=== PATIENT | female | born 1985 | race Caucasian/White ===

== ENCOUNTER 2016-08-16 06:24 | Day surgery (SDC) | payer OTHER ==
[~2016-08-16 06:24] MED LIST: Buffered Lidocaine 1% SYRIN* 3 ML/SYR SYRINGE INTRADERM ONE; Dexamethasone IV* 4 MG/ML 1 ML (4 MG) IV SLOW PU ONE; Dexamethasone IV* 4 MG/ML 1 ML (4 MG) ONE; Famotidine IV* 10 MG/ML 2 ML (20 mg) IV ONE; Famotidine IV* 10 MG/ML 2 ML (20 mg) ONE; Levalbuterol 0.63MG/3ML NEB INH ONE; Scopolamine 1.5 mg* PATCH ONE; Scopolamine 1.5 mg* PATCH TRANSDERM ONE
[2016-08-16 07:04] LABS: Hematocrit 39 % (35-47); Hemoglobin 13.1 g/dl (12.0-16.0); Mean Corpuscular HGB Conc 34 g/dl (31-36); Mean Corpuscular Hemoglobin 29 pg (27-31); Mean Corpuscular Volume 86 fL (80-97); Mean Platelet Volume 8 um3 (7.4-10.4); Red Blood Count 4.47 10^6/ul (4.0-5.4); Red Cell Distribution Width 14 % (10.5-15); White Blood Count 7.7 10^3/ul (3.5-10.8)
[2016-08-16] MEDS ORDERED: Ketorolac INJ* 30 MG/ML 1 ML VIAL ONE (07:13)
[2016-08-16] MEDS ORDERED: Propofol* 10 MG/ML 20 ML BTL IV PUSH ONE (07:13)
[2016-08-16] MEDS ORDERED: Lidocaine 2% PF * 5 ML VIAL ONE (07:13)
[2016-08-16] MEDS ORDERED: Ondansetron INJ* 2 MG/ML VIAL ONE (07:13)
[2016-08-16] MEDS ORDERED: Succinylcholine* 20 MG/ML 10 ML VIAL ONE (07:13)
[2016-08-16] MEDS ORDERED: fentaNYL* 50 MCG/ML 2 ML VIAL (100 MCG VIAL) ONE ×3 (07:14→08:28)
[2016-08-16] MEDS ORDERED: HYDROmorphone* 1 MG/ML 1 ML SYR ONE ×3 (07:14→09:01)
[2016-08-16] MEDS ORDERED: Dexmedetomidine* 200 MCG/2 ML 2 ML VIAL ONE (07:18)
[2016-08-16] MEDS ORDERED: Bupivacaine 0.5% W/EPI SDV* 30 ML VIAL ONE (07:19)
[2016-08-16] MEDS ORDERED: PROCHLORPERAZINE INJ 5 MG/ML 2 ML VIAL IV PRN (07:33)
[2016-08-16] MEDS ORDERED: DiMENhydriNATE IV* 50 MG/ML VIAL IV PUSH PRN (07:33)
[2016-08-16] MEDS ORDERED: Ondansetron INJ* 2 MG/ML VIAL IV PRN (07:33)
[2016-08-16] MEDS ORDERED: HYDROmorphone* 1 MG/ML 1 ML SYR IV PRN (07:33)
[2016-08-16] MEDS ORDERED: Midazolam* 1 MG/ML 2 ML VIAL (2 MG) ONE (07:42)
[2016-08-16] MEDS ORDERED: oxyCODONE/Acetamin 5/325 MG* TAB PO PRN (08:53)
[2016-08-16] MEDS ORDERED: fentaNYL* 50 MCG/ML 5 ML VIAL (250 MCG VIAL) ONE (09:01)
[2016-08-16] MEDS ORDERED: oxyCODONE/Acetamin 5/325 MG* TAB ONE (09:01)
[2016-08-16] MEDS: fentaNYL* 50 MCG/ML 2 ML VIAL (100 MCG VIAL) IV PRN ×5 (09:11→09:47)
[2016-08-16 10:02] VITALS: BP 119/78
[2016-08-19] MEDS ORDERED: Scopolomine PATCH Remove* 1 NOTE MISC PATCH OFF ONE (06:00)
--- NOTE | 2016-08-24 07:51 | OP ---
DATE OF OPERATION: 08/16/16 [facility] DATE OF : 83 SURGEON: Freddie Fofana MD PHOTOGRAPHIC ARTIST: TERENCE Diamond ANESTHESIOLOGIST: Abraham Wellington MD ANESTHESIA: General anesthetic, endotracheal intubation. PRE-OP DIAGNOSIS: Multiparity, the patient desires permanent surgical sterilization. POST-OP DIAGNOSIS: Multiparity, the patient desires permanent surgical sterilization. OPERATIVE PROCEDURE: Bilateral laparoscopic tubal ligation . ESTIMATED BLOOD LOSS: None. FLUIDS: She received 1 L of IV crystalloid fluid. URINE OUTPUT: 600 cc of clear urine. FINDINGS: Exam under anesthesia revealed normal external genitalia, normal cervix, and normal vaginal mucosa. The uterus was noted to be in the retroverted position and laparoscopically, the uterus, bowel, bladder, and adnexa were all within normal limits. There were no complications during this procedure. DESCRIPTION OF PROCEDURE: The patient was taken to the operating room where she was identified. She was placed on the operating table, where a general anesthetic with endotracheal intubation was obtained without difficulty. She was then placed in the dorsal lithotomy position, prepped and draped in the normal sterile fashion. Attention was turned on to the patient's peritoneum, where the bladder was catheterized with Rocha catheter and drained off clear urine. A weighted speculum was then inserted into the patient's vagina. The cervix was grasped with a single- tooth tenaculum and a [place] uterine manipulator was inserted through the cervix. The balloon and the manipulator was then insufflated with 4 cc of normal saline. The single-tooth tenaculum and speculum was then removed. Attention was then brought on to the patient's abdomen, where a 1-cm infraumbilical skin incision was made with a knife and carried through to the underlying layer of fascia. The fascia was then grasped with the Priti clamps, brought up through the incision, and incised with the knife. The fascial incision was then extended about 1 cm with a Yecenia clamp and entry into the peritoneum was confirmed using fascia retractors. At this point, the Priti clamps were then replaced with 0 Polysorb sutures and through this incision, a 10-mm blunt trocar was introduced. The balloon and trocars were insufflated with air 20 cc and attached to 0 Polysorb sutures. The patient 's abdomen was then insufflated with CO2 gas and a look with the laparoscope revealed findings as noted above. At this point, a second trocar was introduced 4 cm above the symphysis pubis under direct visualization. The second trocar, a Filshie clip applicator was introduced. The fallopian tubes were visualized bilaterally and the Filshie clips were applied on the fallopian tubes bilaterally with good blanching at the application site and complete obstruction of the fallopian tubes bilaterally. At this point, all the instruments were removed from the patient's abdomen. The gas from the abdomen was also removed. The umbilical incision and the fascia was closed using 0 Polysorb suture in a running fashion in the umbilical and suprapubic incisions. The skin was closed using 4-0 Monocryl and a subcuticular stitch. All the instruments were also removed from the patient's vagina. Sponge, lap, and needle counts were correct x2. She was then transferred to the recovery room area in stable condition. [id number] #: [id number]
== END 2016-08-16 10:32 | disposition home or self-care (01) ==
LOC: OR 06:24
PROVIDERS: ATTEND Obstetrics & Gynecology
DX: Z30.2 Encounter for sterilization (principal); Z87.891 Personal history of nicotine dependence
CPT/HCPCS: 36415; 85025; A9270-GY; J0330; J1100; J1170; J1885; J2250; J2405; J2704; J3010

== ENCOUNTER 2017-08-14 13:25 | Emergency (ER) | payer OTHER ==
--- NOTE | 2017-08-14 14:40 | RAD ---
INDICATION: Left ankle injury. TECHNIQUE: 3 views of the left ankle were obtained. FINDINGS: Soft tissue swelling is noted along the anterolateral aspect of the ankle. No fracture is seen. Joint spaces appear maintained. IMPRESSION: SOFT TISSUE SWELLING, NO FRACTURE IS SEEN.
[2017-08-14 15:33] VITALS: BP 131/85
--- NOTE | 2017-08-14 16:00 | ED ---
Lower Extremity - HPI Summary HPI Summary: Patient is a 31-year-old female who presents emergency department for a left ankle injury that occurred today. Patient states she stepped off a sidewalk and twisted her left ankle. No other injuries were sustained. She is able to walk with pain. Denies numbness, tingling or weakness. Symptoms are mild in severity. No other injuries were sustained. Walking and moving ankle makes symptoms worse. Rest makes symptoms better. - History of Current Complaint Chief Complaint: EDExtremityLower Stated Complaint: LT ANKLE INJURY Time Seen by Provider: 08/14/17 14:29 Hx Obtained From: Patient Pain Intensity: 5 Pain Scale Used: 0-10 Numeric - Allergies/Home Medications Allergies/Adverse Reactions: Allergies Allergy/AdvReac Type Severity Reaction Status Date / Time Sulfa (Sulfonamide AdvReac Nausea And Verified 08/14/17 14:35 Antibiotics) Vomiting PMH/Surg Hx/FS Hx/Imm Hx Previously Healthy: Yes Endocrine/Hematology History: Reports: Hx Anemia - occas during History: Reports: Hx Kidney Infection, Hx Kidney Stones, Other Problems/ Disorders Sensory History: Denies: Hx Contacts or Glasses, Hx Hearing Aid Opthamlomology History: Denies: Hx Contacts or Glasses Neurological History: Reports: Hx Migraine - TREATS WITH TYLENOL, ALEVE, OR IBUPROFEN- - Surgical History Surgery Procedure, Year, and Place: x2 - 2007, 2013 - [facility] [place]. appendectomy - 1999, [facility] Hx Anesthesia Reactions: No - Immunization History Date of Tetanus Vaccine: within 10 years Date of Influenza Vaccine: fall 2012 Infectious Disease History: No Infectious Disease History: Denies: Traveled Outside the [place] in Last 30 Days - Social History Occupation: Employed Full-time Lives: With Family Alcohol Use: Occasionally Alcohol Amount: 2 per week Substance Use Type: Reports: None Smoking Status (MU): Former Smoker Amount Used/How Often: 1 PACK PER WEEK X 2 YEARS Have You Smoked in the Last Year: Yes Review of Systems Constitutional: Negative Positive: Other - left ankle pain and swelling Skin: Negative Negative: Weakness, Paresthesia, Numbness All Other Systems Reviewed And Are Negative: Yes Physical Exam Triage Information Reviewed: Yes Vital Signs On Initial Exam: Initial Vitals Temp Pulse Resp BP Pulse Ox 97.9 F 82 18 137/82 99 08/14/17 13:47 08/14/17 13:47 08/14/17 13:47 08/14/17 13:47 08/14/17 13:47 Vital Signs Reviewed: Yes Appearance: Positive: Well-Appearing - Patient lying in bed in no acute distress. Pleasant. Skin: Positive: Warm, Dry Head/Face: Positive: Normal Head/Face Inspection Musculoskeletal: Positive: Other - Mild soft tissue edema laterally and pain on the left lateral malleolus. Achilles tendon is intact. No pain to the foot or into the base of the fifth metatarsal. No proximal tib-fib or knee pain. Leg is neurovascularly intact. No breaks in the skin. Neurological: Positive: Normal, CN Intact II-III Psychiatric: Positive: Normal Procedures - Splinting Pre-Made Type: Amor wrap Pre-Proc Neuro Vasc Exam: normal Post-Proc Neuro Vasc Exam: normal Diagnostics - Vital Signs Vital Signs Temp Pulse Resp BP Pulse Ox 08/14/17 15:32 0 F 67 14 131/85 97 08/14/17 13:47 97.9 F 82 18 137/82 99 - Laboratory Lab Statement: Any lab studies that have been ordered have been reviewed, and results considered in the medical decision making process. Lower Extremity Course/Dx - Course Course Of Treatment: Patient presenting to the ear for a minor ankle injury. X- ray reviewed by myself and radiology is negative for fracture or dislocation. Initially ordered an air splint but patient was too large for splint and Amor wrap was placed. Advised to ice and elevate. Tylenol or Motrin for pain as directed. She was given information for orthopedics if pain and swelling continues or further evaluation. Patient understands and agrees with plan. - Diagnoses Differential Diagnosis/HQI/PQRI: Positive: Fracture (Closed), Sprain, Strain Provider Diagnoses: Sprain of ankle Discharge - Sign-Out/Discharge Documenting (check all that apply): Discharge - Discharge Plan Condition: Good Disposition: HOME Patient Education Materials: Ankle Sprain (ED) Referrals: Narciso Yeung MD [Primary Care Provider] - Additional Instructions: Schedule an appointment with orthopedics if pain and swelling continues Activity as tolerated Tylenol or Motrin for pain as directed Ice and elevate Wear splint for comfort - Billing Disposition and Condition Condition: GOOD Disposition: HOME
== END 2017-08-14 15:32 | disposition home or self-care (01) ==
LOC: ED 13:25
DX: S93.402A Sprain of unspecified ligament of left ankle, initial encounter (principal); X50.0XXA Overexertion from strenuous movement or load, initial encounter; X50.9XXA Other and unspecified overexertion or strenuous movements or postures, initial encounter; Y92.9 Unspecified place or not applicable; Z87.891 Personal history of nicotine dependence
CPT/HCPCS: 99282